=== PATIENT | female | born 1950 | race Caucasian/White ===

== ENCOUNTER 2021-02-05 09:49 | Outpatient (CLI) | payer MEDICARE, SELFPAY ==
--- NOTE | 2021-02-05 10:10 | CT_ITS ---
WS: [id number] LDCT LUNG CANCER SCREENING TECHNIQUE: Noncontrast CT of the chest with coronal and sagittal reformatted images. CLINICAL INFORMATION: NICOTINE DEPENDENCE CIGARETTES COMPARISON: None. DLP: 51.42 mGy.cm DIvol: 1.[address] scans at [facility] use at least one of these dose optimization techniques: automat ed exposure control; mA and/or kV adjustment per patient size (includes targeted exams where dose is matched to clinical indication); or iterative reconstruction. FINDINGS: No suspicious pulmonary parenchymal abnormalities. No acute infiltrates. Subsegmental atelectasis lef t lower lobe. Subsegmental atelectasis/fibrosis in the right upper lobe anteriorly. Aortic calcification. Coronary calcification. No mediastinal or hilar lymphadenopathy. Small esophage al hiatal hernia. Degenerative disease thoracic spine. CT/CT lung screening [id number] IMPRESSION: LUNG-RADS: 2-Benign Appearance or Behavior FOLLOW UP: 12 Month: Continue annual screening with LDCT
== END 2021-02-05 09:50 | disposition home or self-care (01) ==
LOC: RAD 09:54
PROVIDERS: PCP Internal Medicine; Visit Provider Internal Medicine
DX: Z12.2 Encounter for screening for malignant neoplasm of respiratory organs (principal); F17.218 Nicotine dependence, cigarettes, with other nicotine-induced disorders
CPT/HCPCS: 71271

== ENCOUNTER 2021-03-04 10:03 | Outpatient (CLI) | payer MEDICARE, SELFPAY ==
--- NOTE | 2021-03-04 10:08 | MM_ITS ---
WS: [id number] BILATERAL SCREENING DIGITAL MAMMOGRAM WITH CAD HISTORY: SCREENING COMPARISON: 08/02/2019, 02/10/2010 and 06/03/2018 Bilateral CC and MLO views submitted. Computer aided detection analyzed. Breast composition: There are scattered areas of fibroglandular density. No suspicious masses, microc alcifications or architectural distortion. Benign calcifications and stable asymmetries. MM/[place] [id number] IMPRESSION: BI-RADS: 2-Benign FOLLOW UP: 1 Year Follow-up
== END 2021-03-04 10:04 | disposition home or self-care (01) ==
LOC: RADSHAW 10:07
PROVIDERS: PCP Internal Medicine; Visit Provider Internal Medicine
DX: Z12.31 Encounter for screening mammogram for malignant neoplasm of breast (principal)
CPT/HCPCS: 77067

== ENCOUNTER 2021-05-28 07:14 | Outpatient (CLI) | payer MEDICARE, SELFPAY ==
[2021-05-28 07:22] VITALS: BP 152/94; PULSE 90; RESP 18; TEMP 36.8; O2SAT 95; BMI 29.2
[2021-05-28 07:59] VITALS: BP 149/86; PULSE 76; RESP 18; O2SAT 97
[2021-05-28 08:52] VITALS: BP 156/98; PULSE 76; RESP 18; TEMP 36.7; O2SAT 92
== END 2021-05-28 07:15 | disposition home or self-care (01) ==
LOC: OPS 07:18
PROVIDERS: PCP Internal Medicine; Visit Provider Internal Medicine
DX: U07.1 COVID-19 (principal)
CPT/HCPCS: 96365

== ENCOUNTER 2021-12-02 12:29 | Outpatient (CLI) | payer MEDICARE, SELFPAY ==
--- NOTE | 2021-12-02 12:49 | XR_ITS ---
WS: [id number] Exam: XR knee RT 3V* [id number] Date/Time of Exam: 12/02/2021 12:59 PM Reason For Exam: PAIN IN RT KNEE Comparison 12/02/2021. Severe degenerative narrowing of the medial joint compartment with gxzi-dd-xcwk articulation. Margina l osteophytes along the medial joint compartment. No acute fracture. No joint effusion seen. Spurring of the posterior patella. XR/XR knee RT 3V* [id number] IMPRESSION: 1. 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 2. No acute fracture or other significant finding.
--- NOTE | 2021-12-02 12:49 | XR_ITS ---
WS: [id number] Exam: XR knee LT 3V* [id number] Date/Time of Exam: 12/02/2021 12:59 PM Reason For Exam: PAIN IN L KNEE Comparison 12/29/2018. Severe degenerative narrowing of the medial joint compartment with gywl-gk-gwuw articulation. No frac ture or dislocation. No significant joint effusion. Mild degenerative change of the posterior patella . XR/XR knee LT 3V* [id number] IMPRESSION: 1. 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 2. No fracture or other significant finding.
== END 2021-12-02 12:30 | disposition home or self-care (01) ==
LOC: RAD 12:40
PROVIDERS: PCP Internal Medicine; Visit Provider Internal Medicine
DX: M25.561 Pain in right knee (principal); M25.562 Pain in left knee
CPT/HCPCS: 73562

== ENCOUNTER 2022-04-01 10:17 | Outpatient (CLI) | payer MEDICARE, SELFPAY ==
--- NOTE | 2022-04-01 10:22 | MM_ITS ---
WS: [id number] Exam: [place] [id number] Date/Time of Exam: 04/01/2022 10:22 AM Reason For Exam: SCREENING VIEWS: MLO and CC views both breasts. 3D digital tomosynthesis is also included in this exam. Comparison made with prior exam of 02/10/2010, 02/24/2017, 06/03/2018, 08/02/2019 and 03/04/2021.. Findings: There was no sign of mass, architectural distortion or suspicious calcification in either breast. Sc attered fibroglandular densities MM/[place] [id number] Impression: BI-RADS: 2-Benign FOLLOW-UP: 1 Year Follow-up This mammogram was also analyzed by the Computer Aided Detection System R2 Imag e Flying I Instructor.
== END 2022-04-01 10:18 | disposition home or self-care (01) ==
PROVIDERS: PCP Internal Medicine; Visit Provider Internal Medicine
DX: Z12.31 Encounter for screening mammogram for malignant neoplasm of breast (principal)
CPT/HCPCS: 77063; 77067

== ENCOUNTER 2022-06-10 08:56 | Outpatient (CLI) | payer MEDICARE, SELFPAY ==
--- NOTE | 2022-06-10 09:05 | CT_ITS ---
WS: [id number] LDCT LUNG CANCER SCREENING TECHNIQUE: Noncontrast CT of the chest with coronal and sagittal reformatted images. CLINICAL INFORMATION: NICOTINE DEPENDENCE,CIGARETTES, WITH OTHER NICOTINE-INDUCED COMPARISON: CT February 24, 2020 DLP: 69.82 mGy.cm DIvol: Mean CTDIvol: 1.60 (mGy) All CT scans at [facility] use at least one of these dose optimization techniques: automat ed exposure control; mA and/or kV adjustment per patient size (includes targeted exams where dose is matched to clinical indication); or iterative reconstruction. FINDINGS: No suspicious pulmonary parenchymal abnormalities. No focal pneumonia or pleural fluid. Normal caliber thoracic aorta.Aortic calcification. Mild coronary calcification. No mediastinal or hi lar lymphadenopathy. No axillary lymphadenopathy. Adrenal glands are normal. Tiny esophageal hiatal h ernia. Mild thoracic kyphosis. Disc space narrowing lower thoracic spine. CT/CT lung screening [id number] IMPRESSION: LUNG-RADS: 1-Negative FOLLOW UP: 12 Month: Continue annual screening with LDCT
== END 2022-06-10 08:57 | disposition home or self-care (01) ==
LOC: RAD 08:56
PROVIDERS: PCP Internal Medicine; Visit Provider Internal Medicine
DX: Z12.2 Encounter for screening for malignant neoplasm of respiratory organs (principal); F17.218 Nicotine dependence, cigarettes, with other nicotine-induced disorders
CPT/HCPCS: 71271

== ENCOUNTER → 2023-01-04 13:56 | Outpatient (BNVA) | payer MEDICARE, SELFPAY | PROVIDERS: PCP Internal Medicine; Referring Provider Internal Medicine; Visit Provider Nurse Practitioner Family | DX: L30.0 Nummular dermatitis (principal); D22.5 Melanocytic nevi of trunk; D69.2 Other nonthrombocytopenic purpura; L81.4 Other melanin hyperpigmentation; L98.8 Other specified disorders of the skin and subcutaneous tissue; L57.0 Actinic keratosis; L21.8 Other seborrheic dermatitis; Z71.89 Other specified counseling; T14.8XXA Other injury of unspecified body region, initial encounter; W57.XXXA Bitten or stung by nonvenomous insect and other nonvenomous arthropods, initial encounter; Z80.8 Family history of malignant neoplasm of other organs or systems | CPT/HCPCS: 17000; 17003; 99204 ==

== ENCOUNTER 2023-06-17 08:24 | Outpatient (CLI) | payer MEDICARE, SELFPAY ==
--- NOTE | 2023-06-17 08:45 | MM_ITS ---
WS: [id number] SCREENING DIGITAL BREAST TOMOSYNTHESIS MAMMOGRAM WITH CAD HISTORY: SCANNING COMPARISON: 04/01/2022 and 03/04/2021 Bilateral CC and MLO with tomosynthesis and synthetic mammography submitted. Computer aided detection analyzed. Breast composition: There are scattered areas of fibroglandular density. There is a new asymmetry in the central LEFT breast just below the nipple line near 6:00. This is a poorly defined asymmetry. Charles ign calcifications RIGHT breast IMPRESSION: MM/[place] [id number] BI-RADS: 2-Benign FOLLOW UP: Need Additional Imaging LEFT breast: Spot compression views (CC and MLO). True ML. Ultrasound to follow if abnormality persists.
== END 2023-06-17 08:25 | disposition home or self-care (01) ==
LOC: MOBLMAM 08:27
PROVIDERS: PCP Internal Medicine; Visit Provider Internal Medicine
DX: Z12.31 Encounter for screening mammogram for malignant neoplasm of breast (principal)
CPT/HCPCS: 77063; 77067

== ENCOUNTER 2023-06-21 12:16 | Outpatient (CLI) | payer MEDICARE, SELFPAY ==
--- NOTE | 2023-06-21 12:22 | CT_ITS ---
WS: [id number] LDCT LUNG CANCER SCREENING TECHNIQUE: Noncontrast CT of the chest with coronal and sagittal reformatted images. CLINICAL INFORMATION: NICOTINE DEPENDENCE, CIGARETTES COMPARISON: CT 06/10/22 DLP: 64.19 mGy.cm DIvol: Mean CTDIvol: 1.30 (mGy) All CT scans at [facility] use at least one of these dose optimization techniques: automat ed exposure control; mA and/or kV adjustment per patient size (includes targeted exams where dose is matched to clinical indication); or iterative reconstruction. FINDINGS: No new suspicious pulmonary parenchymal abnormalities. No acute pulmonary infiltrates. Normal calib er thoracic aorta. Aortic calcification. Mild coronary calcification. No mediastinal or hilar lymphadenopathy. No axilla ry lymphadenopathy. Adrenal glands are normal. Tiny esophageal hiatal hernia. Mild thoracic kyphosis. IMPRESSION: CT/CT lung screening [id number] LUNG-RADS: 1-Negative FOLLOW UP: 12 Month: Continue annual screening with LDCT
== END 2023-06-21 12:17 | disposition home or self-care (01) ==
LOC: RAD 12:16
PROVIDERS: PCP Internal Medicine; Visit Provider Internal Medicine
DX: Z12.2 Encounter for screening for malignant neoplasm of respiratory organs (principal); F17.210 Nicotine dependence, cigarettes, uncomplicated
CPT/HCPCS: 71271

== ENCOUNTER 2023-07-26 08:46 | Outpatient (CLI) | payer MEDICARE, SELFPAY ==
--- NOTE | 2023-07-26 08:51 | MM_ITS ---
WS: [id number] ADDITIONAL VIEWS LEFT MAMMOGRAM WITH DIGITAL BREAST TOMOSYNTHESIS. HISTORY: ABNORMAL L BREAST MAMMOGRAM COMPARISON: 06/17/2023, 04/01/2022 Spot compression views LEFT breast in CC, MLO projections and true ML submitted with digital breast t omosynthesis and SM. Asymmetry described on the screening mammogram in the LEFT breast resolves with additional spot compr ession imaging. No additional follow-up necessary. IMPRESSION: MM/[place] [id number] BI-RADS: 2-Benign FOLLOW UP: 1 Year Follow-up
== END 2023-07-26 08:47 | disposition home or self-care (01) ==
LOC: RAD 08:47
PROVIDERS: PCP Internal Medicine; Visit Provider Internal Medicine
DX: R92.8 Other abnormal and inconclusive findings on diagnostic imaging of breast (principal)
CPT/HCPCS: 77061; 77065; G0279

== ENCOUNTER 2024-07-10 09:59 | Outpatient (CLI) | payer MEDICARE, SELFPAY ==
--- NOTE | 2024-07-10 10:04 | CT_ITS ---
WS: [id number] LDCT LUNG CANCER SCREENING TECHNIQUE: Noncontrast CT of the chest with coronal and sagittal reformatted images. CLINICAL INFORMATION: HX OF NICOTINE DEPENDENCE, CIGARETTES COMPARISON: CT 06/21/2023 DLP: 58.02 mGy.cm DIvol: Mean CTDIvol: 1.20 (mGy) All CT scans at [facility] use at least one of these dose optimization techniques: automat ed exposure control; mA and/or kV adjustment per patient size (includes targeted exams where dose is matched to clinical indication); or iterative reconstruction. FINDINGS: No new suspicious pulmonary parenchymal abnormalities. No mediastinal or hilar lymphadenopathy. Normal caliber thoracic aorta. Aortic calcification. Mild co ronary calcification. Adrenal glands are normal. Tiny esophageal hiatal hernia. Mild thoracic kyphosi s. No axillary lymphadenopathy. CT/CT lung screening [id number] IMPRESSION: LUNG-RADS: 1-Negative FOLLOW UP: 12 Month: Continue annual screening with LDCT
== END 2024-07-10 10:00 | disposition home or self-care (01) ==
PROVIDERS: PCP Internal Medicine; Visit Provider Internal Medicine
DX: Z12.2 Encounter for screening for malignant neoplasm of respiratory organs (principal); F17.210 Nicotine dependence, cigarettes, uncomplicated; I70.0 Atherosclerosis of aorta
CPT/HCPCS: 71271

== ENCOUNTER 2025-02-26 06:44 | Outpatient (CLI) | payer MEDICARE, SELFPAY ==
--- NOTE | 2025-02-26 | ECG_ITS ---
[employer] Test Date: 2025-02-26 Pat Name: Yenni Perales Department: Room: Gender: Female Mat Packer: : 1950 Requested By: Amaris Gayle Order Number: [id number] Mars MD: Akhil Coyle M.D. Interpretive Statements LEXISCAN SESTAMIBI STRESS TEST Procedure: At the baseline, the blood pressure was 140/86 mmHg with a heart rate of 89 bpm. The electrocardiogram showed normal sinus rhythm, normal axis with normal ST and T's. The Lexiscan was infused over a period of 20 seconds. A total of 0.4 mg of Lexiscan was infused. The stress phase was continued for a total of 5 minutes. Heart rate was at the end of stress phase was 99 bpm and a blood pressure of 113/69 mmHg. The EKG at the peak infusion revealed normal sinus rhythm with no significant ST-T wave changes. Sestamibi was injected 20 seconds after the Lexiscan infusion. Blood pressure at the end of recovery phase was 119/69 mmHg with a heart rate of 97 bpm. Conclusion: 1. Normal EKG response to Lexiscan infusion 2. No Lexiscan induced chest pain or cardiac arrhythmia. 3. Normal blood pressure and heart rate response. 4. Sestamibi/sestamibi perfusion scan pending; see separate report. Electronically Signed On 03-17-2025 12:12:17 CDT by Akhil Coyle M.D. [email or web address]
--- NOTE | 2025-02-26 07:00 | NMCV_ITS ---
NM renee perf SPECT r/s* [id number] Yenni Perales Age: 74 Gender: F : 1950 Exam Date: 02/26/2025 07:54 Ordering Phys: Amaris Reid MD Technologist: ZAFAR White Exam Location: [facility] Indications: cp STRESS TEST Please see separate stress test report in [facility] for full findings IMAGE PROTOCOL Rest/Stress 1 Lexiscan Day Radiopharmaceutical Dose (mCi) Administration Site Administered by Rest: Tc-99m 10.4 IV ZAFAR White Sestamibi Stress:Tc-99m 32.9 IV ZAFAR Seaman Sestamibi Rest: 26-Feb-2025 60 Discovery 630 Stress: 26-Feb-2025 30 Discovery 630 0.4mg Lexiscan. Images obtained in supine and prone position. SPECT RESULTS Technical Quality: Good Raw Data Analysis: Normal Image Corrections: No attenuation or motion correction applied Summed Stress Score: 0 Summed Rest Score: 1 Summed Difference Score: 0 PERFUSION FINDINGS SPECT images demonstrate homogeneous tracer distribution throughout the myocardium. FUNCTIONAL RESULTS (calculated via Gated SPECT) Stress Image LV EF (%): 90 Stress EDV (mL):63 TID: 0.87 Stress ESV (mL):6 FUNCTIONAL FINDINGS: There is normal left ventricular systolic function. IMPRESSIONS 1. Normal myocardial perfusion imaging with no evidence of ischemia 2. LV systolic function is normal Akhil Coyle MD (Electronically Signed) Final Date: 03 March 2025 10:51 S
[2025-02-26 07:02] VITALS: BMI 30.5
[2025-02-26] MEDS: regadenoson 0.4 Mg/5 ml Syringe IVP (08:22)
[2025-02-26 08:33] VITALS: BP 118/69; PULSE 98
== END 2025-02-26 06:45 | disposition home or self-care (01) ==
LOC: CDL 06:46
PROVIDERS: PCP Internal Medicine; Visit Provider Internal Medicine
DX: R07.9 Chest pain, unspecified (principal)
CPT/HCPCS: 36415; 78452; 93017; 96374; A9500; J2785

== ENCOUNTER 2025-08-20 14:08 | Emergency (ER) | payer MEDICARE, SELFPAY ==
[2025-08-20 14:11] VITALS: BP 171/103; PULSE 89; RESP 16; TEMP 35.7; O2SAT 92
--- NOTE | 2025-08-20 14:12 | XRR_ITS ---
PROCEDURE INFORMATION: Exam: XR Left Hip Exam date and time: 08/20/2025 2:26 PM Age: 75 years old Clinical indication: Left hip; Lt hip pain x 2 weeks no trauma TECHNIQUE: Imaging protocol: Radiologic exam of the left hip. Views: 2 or 3 views hip with pelvis when performed. COMPARISON: No relevant prior studies available. FINDINGS: Bones/joints: Unremarkable. No acute fracture. Soft tissues: Unremarkable. XR/XR hip LT 2-3V wo/w pel* [id number] IMPRESSION: No acute findings.
--- NOTE | 2025-08-20 14:26 | ED_ITS ---
HPI - Extremity Problem General: Chief complaint: Extremity Injury, Lower Stated complaint: L hip pain Time Seen by Provider: 08/20/25 14:26 History of Present Illness: 75-year-old female with a history of hyp ertension who presents emergency room with left lateral hip pain. She has no known trauma. She has not hurts with movement and doing things. She points to the lateral side of her hip. No radiation. No saddle numbness, no fecal or urinary retention or incontinence, no focal motor deficit, no sensory deficit. Related Data Previous Rx's ?Medication ?Instructions ?Recorded hydrocodone 5 mg-acetaminophen 325 1 tab PO Q8H PRN pa in #14 tabs 08/20/25 mg tablet polyethylene glycol 3350 17 17 g PO DAILY #510 grams 1 10/21/24 gram/dose oral powder (Miralax) prednisone 20 mg tablet 60 mg (3 x 20 mg) PO DAILY # 20 tabs 08/20/25 Allergies Allergy/AdvReac Type Severity Reaction Status Date / Time No Known Allergies Allergy Verified 05/28/21 08:02 Review of Systems Narrative: Constitutional symptoms: Negative except as documented in HPI. Skin symptoms: Negative except as documented in HPI. Eye symptoms: Negative except as documented in HPI. ENMT symptoms: Negative except as documented in HPI. Respiratory symptoms: Negative except as documented in HPI. Cardiovascular symptoms: Negative except as documented in HPI. Gastrointestinal symptoms: Negative except as documented in HPI. Genitourinary symptoms: Negative except as documented in HPI. Musculoskeletal symptoms: Negative except as documented in HPI. Neurologic symptoms: Negative except as documented in HPI. Psychiatric symptoms: Negative except as documented in HPI. Endocrine symptoms: Negative except as documented in HPI. Physical Exam Narrative: EXAM NARRATIVE: General: Alert, no acute distress. Skin: warm and dry Head: Normocephalic Neck: Trachea midline Eye: Extraocular movements are intact. Ears, nose, mouth and throat: Oral mucosa moist Respiratory: Respirations are non-labored Musculoskeletal: Normal ROM, no obvious deformities. Gastrointestinal: Abdomen does not appear distended Neurological: Alert and oriented, No focal neurological deficit observed. Psychiatric: Cooperative, appropriate mood & affect. Course Vital Signs: Vital signs: Vital Signs Temperature 96.2 F L 08/20/25 14:11 Pulse Rate 98 08/20/25 14:39 Respiratory Rate 16 08/20/25 14:11 Blood Pressure 149/100 08/20/25 14:39 Pulse Oximetry 94 08/20/25 14:39 Oxygen Delivery Me thod Room Air 08/20/25 14:39 MDM - Extremity (Nontraumatic) Medical Decision Making Medical decision making Patient's reason for coming to the emergency room: Left hip pain Social determinants: Patient is retired I reviewed the patient's medical record. No reviewable records here. She says she has been to this hospital but has been a very long time I reviewed the patient's current home meds Patient says she takes meds for hypertension regularly Alternate historians: None Differential diagnosis including but not limited to and based on the above HPI, review of systems and physical exam: In this patient with a musculoskeletal extremity pain an x-ray is being ordered to rule out fractures and dislocations. Orders placed to evaluate differential diagnosis based on the above differential, HPI and physical exam X-ray of the left hip and pelvis: No acute process. No fractures. No dislocations. This was reviewed and interpreted by myself the emergency room physician. I also reviewed the radiology report. Lab Review: Laboratory results were reviewed and interpreted by myself the emergency room physician. No lab work indicated today. Assessment of risk: Level of risk: Fairly low risk patient. Only comorbidities are hypertension and older age. Hospitalization considerations: No indication for hospitalization Reexamination: Patient remained stable. No increased work of breathing. No altered mental status. No focal motor deficits. Assessment and plan: Hip pain ?P[facility] [place] and IM Decadron in the emergency room - Discharged home - Discussed plan with patient. Answered any questions. - Evaluation and treatment of this problem were appropriate in the emergency setting. Lab Data Radiology Impressions Hip/Pelvis X-Ray 08/20/25 14:12 IMPRESSION: No acute findings. All radiology interpretation(s) finalized by discharge Discharge Plan Discharge Patient Disposition: Home Clinical Impression: Acute hip pain Condition: Stable Prescriptions: New hydrocodone-acetaminophen 5-325 mg tablet 1 tab PO Q8H PRN (Reason: pain) Qty: 14 0RF Rx Instructions: Take 1/2 to 1 tab every 8 hours as needed for pain prednisone 20 mg tablet 60 mg PO DAILY Qty: 20 0RF Rx Instructions: 3 tabs (60 mg) x 3 days. 2 tabs (40 mg) x 3 days. 1 tab (20 mg) x 3 days. 1/2 tab (10 mg) x 4 days polyethylene glycol 3350 [Miralax] 17 gram/dose powder 17 g PO DAILY Qty: 510 0RF Rx Instructions: Take 1 scoop daily while taking pain medications. Discharge Orders: Discharge ED (Routine); Ordered 08/20/25 Ordered By: Sherri Bentley Referrals: Amaris Reid MD [Primary Care Provider, Internal Medicine] Discharge Diet: Usual diet Discharge Activity: Increase activity as tolerated Patient Instructions: Hip Pain (ED), Opioid Safety, Pain Management, Patient Portal & Willie Instructions Activity Restrictions/Additional Instructions: Thank you for choosing [facility] for your healthcare needs today. You have been screened and evaluated and felt safe for discharge. Health conditions do change or evolve sometimes and as such it is important that you follow up with your Primary Doctor to be re checked, 3-5 days is a general good time frame for follow up. You are always welcome to return to the ED for re assessment if your symptoms are worsening or you have new concerns. (Please note that included in your discharge packet is information concerning opioid safety and pain management. This information is given to all patients who are discharged from the ER regardless of their discharge diagnosis or the medicines they usually take or are prescribed.) Print Language: American Coding Level of Care Code ED Core Paster for Brenda Foster
[2025-08-20 14:39] VITALS: BP 149/100; PULSE 98; O2SAT 94
[2025-08-20] MEDS: HYDROcodone-acetaminophen 10-325 mg Tablet 1 TAB PO (14:45)
[2025-08-20 14:49] VITALS: BP 149/100; PULSE 100; O2SAT 93
[2025-08-20 15:03] VITALS: BP 153/111; PULSE 92; O2SAT 97
--- OUTSIDE RECORDS SUMMARY | 2025-08-20 17:32 | XMS_ITS | Clinical Summary ---
Author Organization [facility] Address [address] [place]: Epic Prelude [place]T [place] [address] Care Team Providers Care Industrial Cook Name Role Phone Amaris Reid MD Primary Care Provider [phone]- [phone] Allergies No known active allergies Medications meloxicam (MOBIC) 15 mg tablet Take 15 mg by mouth daily. 11/27/2021 Active lisinopriL (PRINIVIL) 30 mg tablet Take 30 mg by mouth daily. 11/28/2021 Active amLODIPine (NORVASC) 2.5 mg tablet Take 2.5 mg by mouth daily. 01/27/2023 Active buPROPion HCL (WELLBUTRIN XL) 150 mg Extended Release 24 hour tablet Take 150 mg by mouth daily. 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[employer] Gender Identity Not on file Sexual Orientation Not on file Last Filed Vital Signs Vital Sign Reading Time Taken Comments Blood Pressure 138/80 01/29/2023 10:57 AM CDT Pulse 94 01/27/2022 10:34 AM CDT Temperature - - Respiratory Rate - - Oxygen Saturation - - Inhaled Oxygen Concentration - - Weight 79.8 kg (176 lb) 01/27/2022 10:34 AM CDT Height 160 cm (5' 3 ) 01/29/2023 10:57 AM CDT Body Mass Index 31.18 01/27/2022 10:34 AM CDT Plan of Treatment Health Maintenance Due Date Last Done Comments DTAP/TDAP/TD VACCINES (1 - Tdap) 1969 PNEUMOCOCCAL VACCINE 50+ YEARS (1 of 2 - PCV) 06/27/19 69 COLORECTAL SCREENING 1995 Colorectal Cancer Screening 1995 FIT-DNA Q 3 years 1995 FIT/FOBT Q 1 year 1995 Flex Sig/CT Colonography Q 5 years 1995 ZOSTER VACCINE (1 of 2) 2000 OSTEOPOROSIS SCREENING 2015 INFLUENZA VACCINE (#1) 2025 RSV VACCINE (60+ or ) (1 - 1-dose 75+ series) 2025 Lung Cancer Screening Discontinued 11/11/2019 Procedures Procedure Name Priority Date/Time Associated Diagnosis Comments CT LUNG SCREENING (LDCT BASELINE OR ANNUAL) Routine 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 Exam: CT LUNG SCREENING (LDCT BASELINE OR ANNUAL) Date/Time of Exam: 11/11/2019 11:40 AM Reason For Exam: See Diagnosis Diagnosis: Nicotine dependence, cigarettes, with other nicotine-induced disorders Technique: Low-dose lung cancer screening technique. Findings: No comparison. The heart size is normal without pericardial effusion. There is coronary artery disease. The thoracic aorta is ectatic measuring 3.4 cm. Main pulmonary artery normal in caliber. The tracheobronchial tree is patent centrally. Esophagus unremarkable. Thyroid unremarkable. No pleural fluid collection or pneumothorax. Limited visualization of upper abdominal viscera demonstrates no acute findings. Pulmonary Findings: No concerning pulmonary opacities. Mild scarring at the lung apices. There is linear scarring or atelectasis within the left lower lobe. IMPRESSION: 1. No concerning pulmonary nodules. Recommendation: Lung-RADS 1: NEGATIVE. No nodules or definitely benign nodules. Continue annual screening with LDCT in 12 months. [id number] Narrative Procedure Note Víctor Mijares MD - 01/27/2021 IMPRESSION Please see below. Exam: CT LUNG SCREENING (LDCT BASELINE OR ANNUAL) Date/Time of Exam: 11/11/2019 11:40 AM Reason For Exam: See Diagnosis Diagnosis: Nicotine dependence, cigarettes, with other nicotine-induced disorders Technique: Low-dose lung cancer screening technique. Findings: No comparison. The heart size is normal without pericardial effusion. There is coronary artery disease. The thoracic aorta is ectatic measuring 3.4 cm. Main pulmonary artery normal in caliber. The tracheobronchial tree is patent centrally. Esophagus unremarkable. Thyroid unremarkable. No pleural fluid collection or pneumothorax. Limited visualization of upper abdominal viscera demonstrates no acute findings. Pulmonary Findings: No concerning pulmonary opacities. Mild scarring at the lung apices. There is linear scarring or atelectasis within the left lower lobe. IMPRESSION: 1. No concerning pulmonary nodules. Recommendation: Lung-RADS 1: NEGATIVE. No nodules or definitely benign nodules. Continue annual screening with LDCT in 12 months. [id number] ORDERABLES Final Resu lt from Last 3 Months or Most Recently Relevant to Health Maintenance Insurance [place] [address] [facility] Address: [address] [address] Care Teams Industrial Cook Relationship Specialty Start Date End Date Amaris Reid MD [address] [place] [address] PCP - General Internal Medicine 05/09/19
--- OUTSIDE RECORDS SUMMARY | 2025-08-20 17:32 | XMS_ITS | Encounter Summary ---
Author Organization [facility] Address [address] [place] [address] Care Team Providers Care Online Community Manager Name Role Phone Amaris Reid MD Primary Care Provider +1- [phone] Reason for Referral * CT Scan (Routine) - Closed Specialty Diagnoses / Procedures Referred By Contac t Referred To Contact Radiology Diagnoses Nicotine dependence, cigarettes, with other nicotine-induced disorders Procedures CT LUNG SCREENING (LDCT BASELINE OR ANNUAL) Amaris Reid MD [address] [place] [address] Phone: tel: fax: [facility] CT Scan [address] [place] [address] Phone: tel: fax: Referral ID Status Reason Start Date Expiration Date V isits Requested Visits Authorized [id number] Closed F [facility] TO SCHEDULE (SGF) 10/25/2019 02/23/2020 1 1 LE CLERK Encounter Details Date Type Department Care Team (Late st Contact Info) Description 11/07/2019 Ancillary Orders [facility] Pre-Registration [place] CALL TO MAKE APPOINTMENT ONLY [address] [place] [address] Amaris Reid MD [address] [place] [address] Nicotine dependence, cigarettes, with other nicotine-induced disorders Social History Tobacco Use Types Packs/Day Years Used Date Smoking Tobacco: Never Assessed Comments Unknown Sex and Gender Information Value Date Recorded Sex Assigned at Not on file Legal Sex Female 12:32 PM CDT Gender Identity Not on file Sexual Orientation Not on file documented as of this encounter Plan of Treatment Not on file documented as of this encounter Results * CT LUNG SCREENING (LDCT BASELINE OR ANNUAL) (11/11/2019 11:40 AM SAMPLE CLERK) Anatomical Region Laterality Modality Chest Computed Tomogra phy 11/11/2019 11:4 0 AM SAMPLE CLERK Impressions 11/13/2019 10:21 PM CDT IMPRESSION: Please see below. Exam: CT LUNG SCREENING [...] annual screening with LDCT in 12 months. [id number] Narrative Procedure Note Víctor Mijares MD - 11/13/2019 IMPRESSION: Please see below. Exam: CT LUNG SCREENING [...] annual screening with LDCT in 12 months. [id number] us Amaris Reid MD CT ORDERABLES Final Resu lt documented in this encounter Visit Diagnoses Diagnosis Nicotine dependence, cigarettes, with other nicotine-induced disorders Nicotine dependence, cigarettes, with other nicotine-induced disorders documented in this encounter Care Teams Online Community Manager Relationship Specialty Start Date End Date Amaris Reid MD [address] [place] [id number] PCP - General Internal Medicine 05/09/19 documented as of this encounter
--- OUTSIDE RECORDS SUMMARY | 2025-08-20 17:32 | XMS_ITS | Clinical Summary ---
Author Organization [facility] Address [address] [place] [address] Phone Care Team Providers Care Gallery Intern Name Role Phone Amaris Reid MD Primary Care Provider +1- [phone] Social History Tobacco Use Types Packs/Day Years Used Date Smoking Tobacco: Never Assessed Comments Unknown Sex and Gender Information Value Date Recorded Sex Assigned at Not on file Legal Sex Female 12:32 PM CDT Gender Identity Not on file Sexual Orientation Not on file Plan of Treatment Health Maintenance Due Date Last Done Comments DTAP/TDAP/TD VACCINES (1 - Tdap) 1969 COLORECTAL SCREENING 1995 Colorectal Cancer Screening 1995 FIT-DNA Q 3 years 1995 FIT/FOBT Q 1 year 1995 Flex Sig/CT Colonography Q 5 years 1995 PNEUMOCOCCAL VACCINE 50+ YEARS (1 of 1 - PCV) 06/27/20 00 ZOSTER VACCINE (1 of 2) 2000 OSTEOPOROSIS SCREENING 2015 INFLUENZA VACCINE (#1) 2025 RSV VACCINE (60+ or ) (1 - 1-dose 75+ series) 2025 Insurance [employer] [id number] HMO Care Teams Gallery Intern Relationship Specialty Start Date End Date Amaris Reid MD [address] [place] [address] PCP - General Internal Medicine 05/09/19
== END 2025-08-20 15:04 | disposition home or self-care (01) ==
PROVIDERS: Emergency Provider Emergency Medicine; PCP Internal Medicine
DX: M25.552 Pain in left hip (principal); I10 Essential (primary) hypertension
CPT/HCPCS: 73502; 96372; 99284; J1100; J9999